=== PATIENT | male | born 1980 | race Hispanic/Latino ===

== ENCOUNTER 2018-09-12 16:40 | Emergency (ER) | payer OTHER ==
[2018-09-12 17:32] LABS: HEMATOCRIT 43.7 % (39.0-50.0); IMMATURE GRANULOCYTES 0.6 % (0.0-5.0); MEAN CELL VOLUME 94.2 fL CALC (80.0-100.0); MEAN CORPUSCULAR HGB 32.3 pG CALC (26.0-32.0); MEAN CORPUSCULAR HGB CONC 34.3 g/L CALC (32.0-36.0); NEUT# 12.54 thou/uL (1.82-7.42); RED BLOOD COUNT 4.64 mill/uL (4.70-6.10)
[2018-09-12 18:01] LABS: ALBUMIN 5.5 g/dL (3.2-5.0); BILIRUBIN, TOTAL 0.8 mg/dL (0.0-1.4); CREATININE 2.2 mg/dL (0.7-1.3); POTASSIUM 3.9 mmol/l (3.5-5.1); TOTAL PROTEIN 8.7 g/dL (6.3-8.2)
[2018-09-12 18:59] LABS: URINE BILIRUBIN - DIPSTICK NEGATIVE (NEGATIVE); URINE BLOOD DIPSTICK NEGATIVE (NEGATIVE); URINE COLOR YELLOW; URINE GLUCOSE - DIPSTICK NEGATIVE (NEGATIVE); URINE KETONE TRACE mg/dL (NEGATIVE); URINE LEUK ESTERASE NEGATIVE (NEGATIVE); URINE NITRITE - DIPSTICK NEGATIVE (Negative); URINE PH 6.5 (4.5-8.0); URINE PROTEIN - DIPSTICK 30 mg/dL (NEG-TRACE); URINE UROBILINOGEN - DIPSTICK 0.2 E.U./dL (0.2)
[2018-09-12 19:04] LABS: BARBITURATES NEGATIVE (NEGATIVE); COCAINE NEGATIVE (NEGATIVE); METHADONE NEGATIVE (NEGATIVE); OXCYCODONE NEGATIVE (NEGATIVE); TETRAHYDROCANNABIONOL POSITIVE (NEGATIVE); TRICYLIC ANTIDEPRESSANTS NEGATIVE (NEGATIVE)
[2018-09-12 19:07] LABS: URINE MUCUS FEW hpf (NONE-FEW); URINE RBC 0-2 RBC/hpf (0-5); URINE SQUAMOUS EPITHELIAL CELL RARE EPI/hpf (0-FEW); URINE WBC 0-2 WBC/hpf (0-5)
[2018-09-12] MEDS ORDERED: ZOFRAN ODT4 MG PO (19:22)
[2018-09-12 20:17] VITALS: BP 112/74
== END 2018-09-12 19:49 | disposition home or self-care (01) | DRG 641 ==
LOC: ED 16:40
PROVIDERS: Family Medicine
DX: E86.0 Dehydration (principal); R11.2 Nausea with vomiting, unspecified; T67.5XXA Heat exhaustion, unspecified, initial encounter; X58.XXXA Exposure to other specified factors, initial encounter; Y93.89 Activity, other specified; Y92.89 Other specified places as the place of occurrence of the external cause; Y99.0 Civilian activity done for income or pay; F12.10 Cannabis abuse, uncomplicated; F15.10 Other stimulant abuse, uncomplicated; R25.2 Cramp and spasm

== ENCOUNTER 2020-10-05 20:18 | Inpatient (IN) | payer SELFPAY ==
[~2020-10-05] VITALS: Ht 160 cm; Wt 62.7 kg
[~2020-10-05 20:18] MED LIST: ZOFRAN ODT4 MG PO
--- NOTE | 2020-10-05 20:20 | NUR ---
AMBULATED TO ROOM WITH STEADY GAIT FOR BEDSIDE TRIAGE.
--- NOTE | 2020-10-05 20:45 | NUR ---
IV ACCESS OBTAINED, LABS DRAWN, INCLDUING LACTIC ACID AND BC X 1, AND SWABS OBTAINED, PT TOLERATED WELL.
[2020-10-05 21:06] LABS: IMMATURE GRANULOCYTES 0.6 % (0.0-5.0); MEAN CELL VOLUME 93.5 fL CALC (80.0-100.0); MEAN CORPUSCULAR HGB CONC 34.2 g/dL CAL (32.0-36.0); NEUT# 16.02 thou/uL (1.82-7.42); RED BLOOD COUNT 5.69 mill/uL (4.70-6.10); RED CELL DISTRI WIDTH 12.4 % (11.5-15.5)
[2020-10-05 21:07] LABS: HEMATOCRIT 53.2 % (39.0-50.0); HEMOGLOBIN 18.2 g/dl (14.0-18.0)
--- NOTE | 2020-10-05 21:20 | NUR ---
PT MEDICATED ORDERED, IVF INFUSING, AT 2049 SECOND BC DRAWN,EKG COMPLETED EARLIER, CALL SUMMERS WITHIN REACH
[2020-10-05 21:24] LABS: ALBUMIN 5.8 g/dL (3.2-5.0); ALKALINE PHOSPHATASE 125 u/l (38-126); AMYLASE 499 u/l (30-110); BILIRUBIN, TOTAL 1.1 mg/dL (0.0-1.4); BUN 21 mg/dL (9-20); CARBON DIOXIDE 21 mmol/l (22-30); CHLORIDE 91 mmol/l (95-108); LIPASE 57 u/l (23-300); SGOT/AST 36 u/l (17-59); SODIUM 137 mmol/l (137-146)
[2020-10-05 21:33] LABS: ANION GAP 30 (6-22 (CALC)); BUN/CREATININE RATIO 6 (12-20 (CALC)); CREATININE 3.3 mg/dL (0.7-1.3); GFR 21 ML/MIN (>=60 (CALC)); GFR FOR AFR.AMER. 26 ML/MIN (>=60 (CALC)); POTASSIUM 5.4 mmol/l (3.5-5.1); TOTAL PROTEIN 11.7 g/dL (6.3-8.2)
[2020-10-05 21:43] LABS: MYOGLOBIN 699 ng/mL (0 - 121)
--- NOTE | 2020-10-05 22:15 | NUR ---
PT RESTING SITTINGUP IN CHAIR PER PT REQUEST STATES ITS MORE COMFORTABLE, VS STABLE AND PT ABLE TO PROVIDE SMALL AMOUNT OF URINE. SENT TO LAB FOR TESTING.
[2020-10-05 22:49] LABS: URINE BLOOD DIPSTICK NEGATIVE (NEGATIVE); URINE COLOR YELLOW; URINE GLUCOSE - DIPSTICK NEGATIVE (NEGATIVE); URINE KETONE TRACE mg/dL (NEGATIVE); URINE LEUK ESTERASE NEGATIVE (NEGATIVE); URINE PROTEIN - DIPSTICK 30 mg/dL (NEG-TRACE); URINE SPECIFIC GRAVITY >=1.030; URINE UROBILINOGEN - DIPSTICK 0.2 E.U./dL (0.2)
[2020-10-05 22:56] LABS: URINE BILIRUBIN - DIPSTICK SMALL (NEGATIVE); URINE NITRITE - DIPSTICK NEGATIVE (Negative)
[2020-10-05 22:57] LABS: URINE RBC 0-2 RBC/hpf (0-5); URINE WBC 0-2 WBC/hpf (0-5)
--- NOTE | 2020-10-05 23:20 | NUR ---
PT RESTING REMAINS SITTING UP IN CHAIR FOR COMFORT, CALL SUMMERS WITHIN REACH, AWARE OF PLANNED ADMISSION. WILL CONTINUE TO MONITOR.
--- NOTE | 2020-10-06 00:50 | NUR ---
REPORT CALLED TO [facility]
--- NOTE | 2020-10-06 00:58 | NUR ---
PT TRASNPORTED TO MED SURG VIA WHEELCHAIR ON TELE FOR ADMISSION FOR RHABDO AND DEHYDRATION, BELSTEVEIGNS SENT WITH PATIENT
[2020-10-06 00:59] VITALS: BP 128/79
--- NOTE | 2020-10-06 02:09 | NUR ---
PATIENT ADMITTED FROM ER VIA WHEELCHAIR WITH ER STAFF IN ATTENDANCE. PATIENT WAS ABLE TO STAND AND TRANSFER TO BED. PATIENT IS AWAKE AlERT AND ORIENTEDX3. PATIENT IS UZBE[place] SPEAKING ONLY. IRIS FROM REGIST[facility]ATION HERE TO TRANSLATE FOR THE ADMISSION. PATIENT WITH TELE MONITOR IN PLACE READING SR-60'[id number]. HR IS REGULAR. PATIENT STATES THAT THE CRAMPING IS BETTER THAN WHEN HE WAS ADMITTED. DENIES ANY NAUSEA AT THIS TIME. ABD IS SOFT WITH BS+. STATES LAST BM WAS 10/05. DENIES ANY DIFFICULTY WITH URINATION. LUNGS ARE CLEAR. NO PERIPHERAL EDEMA NOTED. PULSES ARE PALPABLE. PATIENT STATES THAT HE WORKS IN THE [employer]. LIVES WITH S/O. STATES THAT HE DOES DRINK 3-6 BEERS/DAY. OCC MARIJUANA. PATIENT ORIENTED TO ROOM AND SURROUNDINGS. INSTRUCTED ON USE OF NURSE CALL LIGHT SYSTEM, TV REMOTE AND PHONE. SAFETY PRECAUTIONS REINFORCED. PROVIDED WITH PO FLUIDS INCLUDING GATORADE. IVF NS HUNG AND INFUSING VIA LEFT FOREARM SITE AT 125CC/HR. SITE IS HEALTHY AT THIS TIME. CALL LIGHT IN REACH. WILL CONT TO MONITOR. NURSE CALL LIGHT SYSTEM
[2020-10-06 04:00] VITALS: BP 109/66
--- NOTE | 2020-10-06 04:36 | NUR ---
PATIENT APPEARS SLEEPING AT THIS TIME WITH EYES CLOSED-RESP EVEN AND UNLABORED. TELE MONITOR IN PLACE. IVF PATENT AND INFUSING VIA LEFT FOREARM SITE. SITE REMAINS HEALTHY. CALL LIGHT IN REACH. WILL CONT TO MONITOR.
--- NOTE | 2020-10-06 06:37 | NUR ---
PATIENT RESTING IN BED-NO COMPLAINTS AT THIS TIME. TELE MONTITOR IN PLACE. IVF NS PATENT AND INFUSING VIA LEFT FOREARM SITE AT 125CC/HR. PATIENT VOIDED 400CC OF SHERRY URINE IN URINAL. TAKING PO FLUIDS GATORADE WITH NO COMPLAINTS OF NAUSEA. CALL LIGHT IN REACH. WILL CONT TO MONITOR.
--- NOTE | 2020-10-06 07:00 | NUR ---
RECIEVED REPORT FROM ELOISE GRAHAM
[2020-10-06 07:35] VITALS: BP 109/63
--- NOTE | 2020-10-06 07:35 | NUR ---
PT RESTING IN SEMI FOWLERS POSITION. PT IS A/O X3 AND [place] SPEAKING ONLY. ASSESSMENT AND VITALS COMPLETED. BP 109/63, HR 55, O2 100% ON ROOM AIR. RESPIRATIONS ARE EVEN AND UNLABORED ON ROOM AIR. HEART RHYTHM NORMAL WITH TELE IN PLACE. BOWEL SOUNDS ARE ACTIVE. RADIAL AND PEDAL PULSES STRONG. #20G IN LFA INFUSING WITH IVF PER ORDER, SITE REMAINS HEALTHY AND PATENT.SKIN INTACT. PT DENIES OF ANY NEEDS OR PAINS AT THIS TIME. ALL SAFETY PRECAUTIONS ARE IN PLACE WITH CALL LIGHT IN REACH. WILL CONTINUE TO MONITOR.
--- NOTE | 2020-10-06 10:21 | NUR ---
DR RUELAS AT BEDSIDE
--- NOTE | 2020-10-06 10:23 | NUR ---
Patient has been assessed today and is not a candidate to undergo PT intervention.
[2020-10-06 10:31] LABS: IMMATURE GRANULOCYTES 0.4 % (0.0-5.0); MEAN CORPUSCULAR HGB 32.5 pG CALC (26.0-32.0); MEAN CORPUSCULAR HGB CONC 33.9 g/dL CAL (32.0-36.0); NEUT# 4.94 thou/uL (1.82-7.42); RED BLOOD COUNT 4.24 mill/uL (4.70-6.10); RED CELL DISTRI WIDTH 12.5 % (11.5-15.5)
[2020-10-06 10:34] LABS: BUN 19 mg/dL (9-20); CHLORIDE 99 mmol/l (95-108); CPK 162 u/l (52-200); MAGNESIUM 2.2 mg/dL (1.6-2.3); SGOT/AST 25 u/l (17-59); SODIUM 135 mmol/l (137-146)
[2020-10-06 10:35] LABS: HEMATOCRIT 40.7 % (39.0-50.0); HEMOGLOBIN 13.8 g/dl (14.0-18.0)
[2020-10-06 10:37] LABS: ALBUMIN 3.9 g/dL (3.2-5.0); ALKALINE PHOSPHATASE 62 u/l (38-126); ANION GAP 7 (6-22 (CALC)); BUN/CREATININE RATIO 19 (12-20 (CALC)); CARBON DIOXIDE 33 mmol/l (22-30); GFR > 60 ML/MIN (>=60 (CALC)); GFR FOR AFR.AMER. > 60 ML/MIN (>=60 (CALC)); POTASSIUM 4.1 mmol/l (3.5-5.1); TOTAL PROTEIN 6.9 g/dL (6.3-8.2)
[2020-10-06 11:03] VITALS: BP 101/57
--- NOTE | 2020-10-06 12:22 | NUR ---
PT SITTING UP ON SIDE OF BED. RESPIRATIONS ARE EVEN AND UNLABORED. PT REMAINS A/O X3. TELE MONITORING IN PLACE. #20G IN LFA INFUSING WITH IVF PER ORDER, SITE APPEARS HEALTHY AND PATENT. FRESH WATER ADMINISTERED. PT DENIES OF ANY NEEDS OR DISCOMFORTS AT THIS TIME. ALL SAFETY PRECAUTIONS ARE IN PLACE WITH CALL LIGHT IN REACH. WILL CONTINUE TO MONITOR
--- NOTE | 2020-10-06 13:23 | NUR ---
PT EDUCATED ON DISCHRAGE INSTRUCTIONS WITH ASSISTANCE FROM RICHY IN MEDICAL RECORDS. PT VERBLAIZED UNDERSTANDING WITH NO QUESTIONS OR CONCERNS. #20G IN LFA REMOVED WITH CATHATER STILL INTACT. TELE MONITORING REMOVED, ER NOTFIED.PT REQUEST TO WALK. DM TO SEPTEMBER FOR TAXI.
--- NOTE | 2020-10-06 13:30 | NUR ---
Discharge instructions given. Patient verbalizes understanding of same. Discharged in stable condition via [facility] Home with staff. All belongings sent with pt. PT D/C IAIN IN STABLE CONDITION VIA TAXI PROVIDED BY [facility]. PT DC WITH ALL DC INSTRUCTIONS AND BELINGINGS.
== END 2020-10-06 13:28 | disposition home or self-care (01) | DRG 683 ==
LOC: ED 20:18 → ED-I 22:35 → ED 22:58 → MS2 22:59
PROVIDERS: Emergency Medicine; Nurse Practitioner; ADMIT Internal Medicine; ATTEND Internal Medicine
DX: N17.9 Acute kidney failure, unspecified (principal); M62.82 Rhabdomyolysis; E86.0 Dehydration; D72.829 Elevated white blood cell count, unspecified; F15.10 Other stimulant abuse, uncomplicated; F12.10 Cannabis abuse, uncomplicated; F16.10 Hallucinogen abuse, uncomplicated; F17.200 Nicotine dependence, unspecified, uncomplicated; X30.XXXA Exposure to excessive natural heat, initial encounter; Y93.89 Activity, other specified; Y92.73 Farm field as the place of occurrence of the external cause; Y99.0 Civilian activity done for income or pay; Z20.822 Contact with and (suspected) exposure to COVID-19